=== PATIENT | male | born 1990 | race Hispanic/Latino ===

== ENCOUNTER 2019-11-17 10:16 | Emergency (ER) | payer SELFPAY ==
[2019-11-17 10:34] VITALS: BP 169/89; PULSE 82; RESP 16; TEMP 37.1; O2SAT 99
--- NOTE | 2019-11-17 10:34 | ED.ABDPAIN ---
HPI - Abdominal Pain General Chief Complaint: Abdominal Pain Stated Complaint: Abd pain Time Seen by Provider: 11/17/19 10:40 Source: patient and RN notes reviewed Mode of arrival: ambulatory Limitations: no limitations History of Present Illness HPI narrative: 28-year-old male presents with concern for left lower quadrant abdominal pain starting overnight, rates it a 10 out of 10 at times, pain is intermittent. Denies nausea, vomiting. Reports decreased appetite, has not had anything to eat or drink since yesterday afternoon. Reports his last normal bowel movement was yesterday morning. Denies diarrhea. Denies fever. Denies abdominal trauma. MD elicited complaint: abdominal pain Related Data Home Medications Medication Instructions Recorded Confirmed No Home Medications 11/17/19 11/17/19 Allergies Allergy/AdvReac Type Severity Reaction Status Date / Time No Known Allergies Allergy Verified 11/17/19 10:54 Review of Systems Review of Systems: Narrative: CONSTITUTIONAL: Denies malaise, chills, sweats, or fever. CARDIOVASCULAR: Denies chest pain, palpitations, or edema. RESPIRATORY: Denies cough or dyspnea. GASTROINTESTINAL: Reports left lower quadrant abdominal pain, decreased appetite. Denies nausea, vomiting, diarrhea, bloody, or mucous stools. GENITOURINARY: Denies dysuria or hematuria. Denies red, painful, tender scrotum or testicles SKIN: Denies bruising or redness MUSCULOSKELETAL: Denies back pain, joint pain, or myalgia. All systems reviewed & are unremarkable except as noted in HPI and below PMFSH Comments At time of signature, agree with nursing past medical, surgical, social and family history. There is no relevant family history pertinent to the presenting complaint Exam Narrative: Exam Narrative: GENERAL: Well-appearing, well-nourished, and in no acute distress. HEAD: Normocephalic, atraumatic. EYES: PERRLA, conjunctivae clear, and EOMI. ENT: Nares clear. Mucous membranes moist. NECK: Supple. No lymphadenopathy CHEST: Speaks in full sentences. No respiratory distress. HEART: Regular rate and rhythm. ABDOMEN: Soft, flat, nondistended. Left lower quadrant tenderness. No guarding, rebound tenderness, or rigid. No pulsatilla masses. Bowel sounds present in all four quadrants. No organomegaly. Negative Cason?s sign. No periumbilical tenderness. No Supra public tenderness or distension. Good femoral pulses bilaterally. No hernia noted. No scars or surface trauma. SKIN: Warm, dry, no rash. NEURO: Alert and oriented x3. PSYCH: Normal mood and affect Course Course Emergency Course: Patient is aware of, understands and agrees to stay in the emergency department. Patient agrees to proceed directly to the emergency department. Portions of this record may have been created with voice recognition software Vital Signs Vital signs: Reviewed. Patient may transfer to emergency department, unable to educate about hypertension Transfer Transfered to: [facility] Transportation: Other (Private vehicle) Transfer rationale: Abdominal pain Accepting physician: Lizbeth Almanzar comments: Patient stable for transfer via private vehicle MDM - Abdominal Pain MDM Narrative Medical decision making narrative: Patient's history and exam warrant further evaluation in the emergency department. Patient is nontoxic appearing and appropriate for transfer via private vehicle. Critical Care Time Critical Care Time Critical Care Time: No Discharge Plan Discharge Clinical Impression: Abdominal pain Patient Disposition: Acute Care Hospital Condition: Stable Prescriptions: No Action No Home Medications RF: 0 Follow-up/Referrals: PHYSICIAN,BUSINESS PRACTICES OFFICER [Primary Care Provider] - Time of Disposition: 10:59
== END 2019-11-17 10:58 | disposition short-term general hospital (02) ==
PROVIDERS: Emergency Provider Nurse Practitioner
DX: R10.32 Left lower quadrant pain (principal)
CPT/HCPCS: 99202; G0463

== ENCOUNTER 2019-11-17 12:04 | Emergency (ER) | payer SELFPAY ==
--- NOTE | ~2019-11-17 | CT_ITS ---
EXAMINATION: CT abdomen pelvis wo con DATE: 11/17/2019 13:12 INDICATION: Left lower quadrant pain TECHNIQUE: Computed tomography (CT) of the abdomen and pelvis was performed without intravenous contr ast. The dose-length product (DLP) was 397.76 mGy-cm. Automated exposure control and iterative recons truction technique were employed. COMPARISON: None FINDINGS: The lung bases are clear. The heart size is normal. The liver, spleen, pancreas, gallbladde r, and adrenal glands are normal. The right kidney is unremarkable. There is a 4 mm stone at the left ureteropelvic junction which causes moderate left hydronephrosis. A 2 mm stone is present in the lef t kidney upper pole. No additional urolithiasis is identified. No pathologically enlarged abdominal o r pelvic lymph nodes are identified. There is no free intraperitoneal gas or evidence of bowel obstru ction. The appendix is normal. A moderate volume of colonic stool is present. IMPRESSION: 1. 4 mm stone at the left ureteropelvic junction which causes moderate left hydronephrosis. Consider KUB for treatment planning purposes. 2. Left nephrolithiasis. Reviewed, dictated and finalized at location A. IMPRESSION: 1. 4 mm stone at the left ureteropelvic junction which causes moderate left hyd ronephrosis. Consider KUB for treatment planning purposes. 2. Left nephrolithiasis.
--- NOTE | ~2019-11-17 | XR_ITS ---
EXAMINATION: XR abdomen/kub 1V INDICATION: Left lower quadrant pain TECHNIQUE: Supine views of the abdomen were obtained on 2 radiographs. COMPARISON: CT from today FINDINGS: A 4 mm stone projects in the expected location of the left ureteropelvic junction, consiste nt with the stone identified on CT. The bowel gas pattern is normal. A bone island is noted in the le ft ileum. IMPRESSION: 1. 4 mm stone at the expected location of the left ureteropelvic junction Reviewed, dictated and finalized at location A.
[2019-11-17 12:14] VITALS: BP 170/102; PULSE 92; RESP 17; TEMP 37.1; O2SAT 100
--- NOTE | 2019-11-17 12:27 | ED.ABDPAIN ---
HPI - Abdominal Pain General Chief Complaint: Abdominal Pain Stated Complaint: abd pain Time Seen by Provider: 11/17/19 12:13 Source: patient and family Mode of arrival: ambulatory Limitations: language barrier History of Present Illness HPI narrative: Patient is a 28-year-old male who presents to emergency department for evaluation of left lower back pain and abdominal pain that began over the last 2 days patient is speaking and an special education secretary was used patient notes that the pain is been constant for 2 days denies similar occurrence injury or trauma or recent illness. Patient denies vomiting diarrhea or urinary symptoms. Patient has been taking [id number] medications with minimal improvement. Patient presents in no distress upon arrival Related Data Allergies Allergy/AdvReac Type Severity Reaction Status Date / Time No Known Allergies Allergy Verified 11/17/19 10:54 Review of Systems Review of Systems: All systems reviewed & are unremarkable except as noted in HPI and below PMFSH Social History Social History (Updated 11/17/19 @ 12:28 by Manny Braxton PA-C) Smoking status: Never smoker Gender identity (if verbalized by the patient): Male Exam Narrative: Exam Narrative: GENERAL: Well-appearing, well-nourished, and in no acute distress. HEAD: Normocephalic, atraumatic. EYES: PERRLA and EOMI. ENT: Nares clear, no rhinorrhea or epistaxis. Mucous membranes moist. CHEST: Clear to auscultation. No respiratory distress. No wheezes rales or rhonchi HEART: Regular rate and rhythm. No murmur heard. Normal peripheral pulses. ABDOMEN: Soft, nontender, nondistended EXTREMITIES: Normal range of motion. No edema. No CVA tenderness to palpation SKIN: Warm, dry, no rash. NEURO: No focal deficits. Alert and oriented x3. Cranial nerves II through XII grossly intact PSYCH: Normal mood and affect. Course Course Emergency Course: Patient in the room at this time in no distress minimal pain aware of case findings treatment plan and diagnosis agreeing to return if symptoms worsen and to follow-up with urology Vital Signs Vital signs: Vital Signs Temperature 98.7 F 11/17/19 12:14 Pulse Rate 92 11/17/19 12:14 Respiratory Rate 17 11/17/19 12:14 Blood Pressure 170/102 H 11/17/19 12:14 Pulse Oximetry 100 11/17/19 12:14 Temperature 98.7 F 11/17/19 12:14 Pulse Rate 83 11/17/19 14:38 Respiratory Rate 13 11/17/19 14:38 Blood Pressure 132/94 H 11/17/19 14:38 Pulse Oximetry 100 11/17/19 14:38 MDM - Abdominal Pain MDM Narrative Medical decision making narrative: Patient in the room in no distress aware of case findings treatment plan and diagnosis agreeing to follow-up with urology given medications in the emergency department with improvement of pain patient notes minimal discomfort and feels comfortable with going home Lab Data Result diagrams: 11/17/19 12:22 11/17/19 12:22 Labs: Lab Results 11/17/19 11/17/19 11/17/19 Range/Units 12:22 12:22 12:22 WBC 8.4 (4.5-10.0) K/mm3 RBC 5.72 (4.6-6.20) M/mm3 Hgb 17.7 (14.0-18.0) g/dL Hct 51.0 (42.0-52.0) % MCV 89.2 (80-100) fl MCH 30.9 (26-34) pg MCHC 34.7 (32-36) g/dl RDW 12.9 (11.5-14.5) % Plt Count 207 (150-375) k/mm3 MPV 10.6 H (7.4-10.4) fl Immature Gran % (Auto) 0.4 (0-0.5) % Neut % (Auto) 76.1 H (45.5-73.1) % Lymph % (Auto) 17.7 L (18.3-44.2) % Bell % (Auto) 4.7 (2.6-8.5) % Eos % (Auto) 0.5 (0-4.4) % Baso % (Auto) 0.6 (0.2-1.2) % Lymph # (Auto) 1.48 (0.9-3.2) K/mm3 Bell # (Auto) 0.4 (0.1-0.6) K/mm3 Eos # (Auto) 0.0 (0-0.3) K/mm3 Baso # (Auto) 0.1 (0.0-0.1) K/mm3 Abs Immat Gran (auto) 0.03 (0.00-0.031) K/mm3 Absolute Neuts (auto) 6.4 (1.3-6.7) K/mm3 Absolute Nucleated RBC 0.0 (0.0-0.012) K/mm3 Nucleated RBC % 0.0 (0.0-0.2) % Sodium 140 (137-145) mmol/L Potassium 3.7
[2019-11-17 12:31] LABS: Basophils Absolute Auto 0.1 K/mm3 (0.0-0.1); Basophils Percent Auto 0.6 % (0.2-1.2); Eosinophils Percent Auto 0.5 % (0-4.4); Hemoglobin 17.7 g/dL (14.0-18.0); Immature Granulocyte Absolute 0.03 K/mm3 (0.00-0.031); Immature Granulocyte Percent A 0.4 % (0-0.5); Lymphocytes Absolute Auto 1.48 K/mm3 (0.9-3.2); Lymphocytes Percent Auto 17.7 % (18.3-44.2); Mean Corpuscular HGB Conc 34.7 g/dl (32-36); Mean Corpuscular Hemoglobin 30.9 pg (26-34); Mean Corpuscular Volume 89.2 fl (80-100); Mean Platelet Volume 10.6 fl (7.4-10.4); Monocytes Absolute Auto 0.4 K/mm3 (0.1-0.6); Monocytes Percent Auto 4.7 % (2.6-8.5); Neutrophils Absolute Auto 6.4 K/mm3 (1.3-6.7); Neutrophils Percent Auto 76.1 % (45.5-73.1); Platelet Count Result 207 k/mm3 (150-375); Red Blood Count 5.72 M/mm3 (4.6-6.20); Red Cell Distribution Width 12.9 % (11.5-14.5); White Blood Count 8.4 K/mm3 (4.5-10.0)
[2019-11-17 12:38] LABS: Add Urine Microscopic? YES; Appearance Urine Clear (Clear); Bilirubin Urine Negative (Negative); Blood Urine 2+ (Negative); Color Urine Straw (Yellow); Glucose Urine UA Negative (Negative); Ketones Urine Negative (Negative); Leukocyte Esterase Ur Negative LEU/UL (Negative); Mucus Urine Rare /lpf; Nitrate Urine Negative (Negative); Protein Urine Negative (Negative); RBC Urine 51-75 /hpf (0-2); Specific Grav Ur 1.012 (1.001-1.035); Squamous Epithelial Cell Urine Rare /hpf (Few); Urobilinogen Urine Negative mg/dL (<2.0); WBC Urine 0-3 /hpf
[2019-11-17 12:43] LABS: Alanine Aminotransferase 98 U/L (4-50); Albumin Level 4.9 g/dL (3.5-5.1); Alkaline Phosphatase 65 U/L (38-126); Anion Gap 7 mmol/L (8-16); Aspartate Amino Transferase 64 U/L (17-59); Bilirubin,Total 0.9 mg/dL (0.2-1.3); Blood Urea Nitrogen 9 mg/dL (9-20); Calcium 9.5 mg/dL (8.4-10.2); Carbon Dioxide 28 mmol/L (22-30); Chloride 105 mmol/L (98-107); Estimated CRCL calculation 121 ml/min; Estimated Glomerular Filt Rate > 60; Glucose 108 mg/dL (75-110); Lipase 97 U/L (23-300); Potassium 3.7 mmol/L (3.4-5.0); Sodium 140 mmol/L (137-145)
[2019-11-17] MEDS: SODIUM CHLORIDE 0.9% IV 1,000 ML 999 ML IV CONT (12:52)
[2019-11-17 14:38] VITALS: BP 132/94; PULSE 83; RESP 13; O2SAT 100
--- NOTE | 2019-11-17 14:44 | PC.NURSE ---
Per [place] at [facility], fax 5 hour vitals to Meekerjoe Bravo, , records faxed at this time.
[2019-11-17 15:27] VITALS: BP 140/87; PULSE 73; RESP 26; O2SAT 98
== END 2019-11-17 15:29 | disposition home or self-care (01) ==
PROVIDERS: Emergency Medicine Emergency Medical Services; Emergency Provider Emergency Medicine
DX: N13.2 Hydronephrosis with renal and ureteral calculous obstruction (principal)
CPT/HCPCS: 36415; 74018; 74176; 80053; 81001; 83690; 85025; 96365; 99284; J0131; J7030

== ENCOUNTER 2023-09-24 07:10 | Emergency (ER) | payer OTHER, SELFPAY ==
[2023-09-24 07:14] VITALS: BP 143/103; PULSE 73; RESP 15; TEMP 36.8; O2SAT 100
--- NOTE | 2023-09-24 07:47 | ED.SKABFB ---
HPI - Skin/Abscess/Foreign Bdy General Chief complaint: Skin/Abscess/Foreign Body Stated complaint: poison kerry Time Seen by Provider: 09/24/23 07:19 Source: patient and family Mode of arrival: ambulatory Limitations: language barrier History of Present Illness HPI narrative: 32 years old male presents with itching rash on the chest arms and legs started 8 days ago, works in [employer], exposed to poison kerry. Denies difficulty breathing or swallowing. History of allergy Related Data Allergies Allergy/AdvReac Type Severity Reaction Status Date / Time No Known Allergies Allergy Verified 09/24/23 07:14 Review of Systems Review of Systems: All systems reviewed & are unremarkable except as noted in HPI and below PMFSH Social History Social History Smoking status: Never smoker Gender identity (if verbalized by the patient): Male Exam Narrative: General appearance: Well-developed, well-nourished Skin: Scattered hives Head: Normocephalic, nontraumatic Eyes: Clear conjunctiva ENT: Oropharynx normal, ears normal, nose normal Neck: Supple, nontender Chest and respiratory: Airway patent, no respiratory distress, no accessory muscle use Heart: Regular rate/rhythm Abdomen: Soft, nontender, no organomegaly, quiet bowel sounds Vascular: Normal peripheral pulses, normal capillary refill. Musculoskeletal: Normal range of motion, nontender back Neurologic: Alert and oriented ?3, PARATRANSIT [employer]IVER is normal as tested, no gross motor deficit Course Vital Signs Vital signs: Vital Signs Temperature 36.8 C 09/24/23 07:14 Pulse Rate 73 09/24/23 07:14 Respiratory Rate 15 09/24/23 07:14 Blood Pressure 143/103 H 09/24/23 07:14 Pulse Oximetry 100 09/24/23 07:14 Oxygen Delivery Room Air 09/24/23 07:14 Temperature 36.8 C 09/24/23 07:14 Pulse Rate 73 09/24/23 07:14 Respiratory Rate 15 09/24/23 07:14 Blood Pressure 143/103 H 09/24/23 07:14 Pulse Oximetry 100 09/24/23 07:14 Oxygen Delivery Room Air 09/24/23 07:14 MDM - Skin/Abscess/Foreign Bdy MDM Narrative Medical decision making narrative: Contact dermatitis secondary to poison kerry exposure Critical Care Time Critical Care Time Critical Care Time: No Discharge Plan Discharge Clinical Impression: Contact dermatitis Patient Disposition: Home, Self-Care Condition: Stable Instructions: Contact Dermatitis (ED) Additional Instructions: Return if symptoms are worsening , call your family physician for appointment, take Tylenol as as needed for aches and pain, continue home medications. Get [id number] calamine lotion Prescriptions: New prednisone 20 mg tablet 40 mg PO DAILY 5 Days Qty: 10 0RF Zyrtec 10 mg capsule 10 mg PO BID PRN (Reason: allergy symptoms) Qty: 20 0RF No Action tamsulosin [Flomax] 0.4 mg capsule 0.4 mg PO DAILY Qty: 7 0RF ondansetron 4 mg tablet,disintegrating 4 mg PO Q6H PRN (Reason: nausea and vomiting) Qty: 7 0RF ketorolac 10 mg tablet 10 mg PO Q8H PRN (Reason: pain) Qty: 7 0RF Follow-up/Referrals: PHYSICIAN,GAMING HOST [Primary Care Provider] - Quinton Cortes MD [Physician] - 09/28/23
== END 2023-09-24 08:35 | disposition home or self-care (01) ==
LOC: ANHED 08:14
PROVIDERS: Emergency Provider Emergency Medicine
DX: L25.9 Unspecified contact dermatitis, unspecified cause (principal)
CPT/HCPCS: 99283